=== PATIENT | female | born 1935 | race Caucasian/White ===

== ENCOUNTER 2021-03-25 12:59 | Inpatient (IN) | payer MEDICARE, BC ==
[~2021-03-25] VITALS: Ht 177.8 cm; Wt 78.0 kg
[~2021-03-25 12:59] MED LIST: AMLODIPINE BESY10 MG PO; ASPIRIN BUFFER325 MG PO; ASPIRIN300 MG; ASPIRIN325 MG PO; ASPIRIN500 MG PO; B12 5,000 MCG1 EACH PO; CARVEDILOL12.5 MG PO; CEPHALEXIN500 MG PO; CLONIDINE HCL0.1 MG PO; FLONASE16 GM; GABAPENTIN100 MG; LASIX; LEVAQUIN500 MG PO; LISINOPRIL10 MG PO; METOPROLOL TART50 MG PO; MICARDIS40 MG PO; POTASSIUM CHLO20 ME1 PO; PREDNISONE5 MG PO; TYLENOL WITH C1 EACH PO; VITAMIN B-121000 MCG PO
[2021-03-25 13:41] LABS: BASOPHILS % 0.5 % (0.0-1.0); EOSINOPHILS # (AUTO) 0.2 (0.0-0.4); HEMATOCRIT 26.5 % (34.2-44.1); HEMOGLOBIN 8.6 g/dL (12.0-16.0); LYMPHOCYTES # (AUTO) 1.2 (1.0-3.2); LYMPHOCYTES % 18.9 % (18.0-39.1); MEAN CORPUSCULAR HEMOGLOBIN 27.9 pg (28-32); MEAN CORPUSCULAR HGB CONC 32.5 g/dL (31-35); MONOCYTES # (AUTO) 0.5 (0.2-0.8); MONOCYTES % 7.1 % (4.4-11.3); NEUTROPHILS # (AUTO) 4.5 (2.1-6.9); NEUTROPHILS % 69.7 % (38.7-80.0); PLATELET COUNT 276 x10e3/uL (140-360); RED BLOOD COUNT 3.08 x10e6/uL (3.6-5.1); RED CELL DISTRIBUTION WIDTH 14.6 % (11.7-14.4)
[2021-03-25 13:49] LABS: INR 1.02; PROTHROMBIN TIME 13.6 seconds (11.9-14.5)
[2021-03-25 13:50] LABS: PARTIAL THROMBOPLASTIN TIME 32.6 seconds (23.8-35.5)
[2021-03-25 13:59] LABS: ALBUMIN 2.8 g/dL (3.5-5.0); ALBUMIN/GLOBULIN RATIO 0.9 (0.8-2.0); ANION GAP 15.9 mmol/L (8-16); CALCIUM 8.7 mg/dL (8.4-10.2); CREATININE, SERUM 0.67 mg/dL (0.57-1.11)
[2021-03-25 14:02] LABS: POTASSIUM 2.9 mmol/L (3.5-5.1)
[2021-03-25 14:05] LABS: CREATINE KINASE MB 1.1 ng/mL (0-5.0)
[2021-03-25] MEDS: CEFTRIAXONE 2 GM in SODIUM CHLORIDE 0.9% 100 ML IV SCH (14:23)
[2021-03-25] MEDS ORDERED: FUROSEMIDE40 MG (14:30)
[2021-03-25] MEDS ORDERED: REMDESIVIR 200MG 200 MG in SODIUM CHLORIDE 0.9% 100 ML IV ONE (14:30)
[2021-03-25] MEDS ORDERED: APLISOL5 TUB UNIT (14:30)
[2021-03-25] MEDS ORDERED: REMDESIVIR 100MG 200 MG in SODIUM CHLORIDE 0.9% 100 ML IV ONE (14:30)
[2021-03-25] MEDS ORDERED: DOXAZOSIN MESYLA2 MG (14:30)
[2021-03-25] MEDS ORDERED: AMLODIPINE BESYL5 MG (14:30)
[2021-03-25] MEDS ORDERED: LISINOPRIL20 MG (14:30)
[2021-03-25] MEDS ORDERED: SIMETHICONE80 MG (14:30)
[2021-03-25] MEDS ORDERED: DIPHENHYDRAMINE HCL 25 MG CAP PO PRN (14:30)
[2021-03-25] MEDS ORDERED: METOPROLOL SUCC50 MG (14:30)
[2021-03-25] MEDS ORDERED: POTASSIUM CHLORIDE 20 MEQ TAB CR PO PRN (14:30)
[2021-03-25] MEDS ORDERED: DIVALPROEX SOD125 MG (14:30)
[2021-03-25] MEDS ORDERED: TRAMADOL HCL 50 MG TAB PO PRN (14:30)
[2021-03-25] MEDS ORDERED: MELATONIN 5 MG TABLET PO PRN (14:30)
[2021-03-25] MEDS ORDERED: DOCUSATE SODIUM 100 MG CAP PO PRN (14:30)
[2021-03-25] MEDS ORDERED: CHLORASEPTIC SPRAY 177 ML BTL MM PRN (14:30)
[2021-03-25] MEDS ORDERED: SIMETHICONE 80 MG CHEW PO PRN (14:30)
[2021-03-25] MEDS ORDERED: DEXTROSE 50% SYRINGE 50 ML IV PRN (14:30)
[2021-03-25] MEDS ORDERED: ONDANSETRON HCL INJ 2MG/ML 2ML 2 MG/ML VIAL IV PRN (14:30)
[2021-03-25] MEDS ORDERED: FAMOTIDINE20 MG (14:30)
[2021-03-25] MEDS ORDERED: HYDRALAZINE HCL 20 MG/ML VIAL IV PRN (14:30)
[2021-03-25] MEDS ORDERED: GUAIFENESIN/CODEINE 10 ML CUP PO PRN (14:30)
[2021-03-25] MEDS ORDERED: ATORVASTATIN CA10 MG (14:30)
[2021-03-25 14:33] LABS: CLARITY,URINE HAZY (CLEAR); COLOR,URINE YELLOW (YELLOW); KETONES,URINE NEGATIVE (NEGATIVE); LEUKOCYTE ESTERASE ,URINE TRACE (NEGATIVE); NITRITE,URINE NEGATIVE (NEGATIVE); PROTEIN,URINE DIPSTICK NEGATIVE (NEGATIVE); URINE UROBILINOGEN 0.2 mg/dL (0.2 - 1)
[2021-03-25 14:34] LABS: BACTERIA,URINE FEW /HPF
[2021-03-25 14:35] LABS: EPITHELIAL CELLS,URINE MODERATE /LPF
[2021-03-25] MEDS ORDERED: SODIUM CHLORIDE 0.9% 1000ML 1,000 ML IV SCH (14:45)
[2021-03-25] MEDS: DEXAMETHASONE SOD PHOS 10 MG/1 ML VIAL IV SCH (15:48)
[2021-03-25 17:30] VITALS: BP 162/55
[2021-03-25] MEDS: ENOXAPARIN SOD INJ 40 MG/0.4 ML SYR SC SCH (17:30)
[2021-03-25] MEDS: ASCORBIC ACID 500 MG TAB PO SCH (17:30)
[2021-03-25 17:33] VITALS: BP 162/55
[2021-03-25] MEDS ORDERED: POTASSIUM CHLORIDE 20 MEQ TAB CR PO STA (17:58)
[2021-03-25 19:15] LABS: CREATINE KINASE MB 1.2 ng/mL (0-5.0)
[2021-03-25 20:00] VITALS: BP 172/51
[2021-03-25 21:42] VITALS: BP 172/51
[2021-03-26] VITALS (7 sets, daily range): BP systolic 148–182; BP diastolic 49–114
[2021-03-26 07:14] LABS: ALBUMIN 2.6 g/dL (3.5-5.0); ALBUMIN/GLOBULIN RATIO 0.8 (0.8-2.0); ANION GAP 17.3 mmol/L (8-16); CALCIUM 8.7 mg/dL (8.4-10.2); CREATININE, SERUM 0.67 mg/dL (0.57-1.11); HEMOGLOBIN 7.5 g/dL (12.0-16.0); LYMPHOCYTES # (AUTO) 0.5 (1.0-3.2); LYMPHOCYTES % 17.6 % (18.0-39.1); MEAN CORPUSCULAR HEMOGLOBIN 28.6 pg (28-32); MEAN CORPUSCULAR HGB CONC 33.5 g/dL (31-35); MEAN CORPUSCULAR VOLUME 85.5 fL (81-99); MONOCYTES # (AUTO) 0.1 (0.2-0.8); MONOCYTES % 3.4 % (4.4-11.3); NEUTROPHILS # (AUTO) 2.3 (2.1-6.9); NEUTROPHILS % 77.6 % (38.7-80.0); PLATELET COUNT 257 x10e3/uL (140-360); POTASSIUM 3.3 mmol/L (3.5-5.1); RED BLOOD COUNT 2.62 x10e6/uL (3.6-5.1); RED CELL DISTRIBUTION WIDTH 14.6 % (11.7-14.4)
[2021-03-26 07:28] LABS: HEMATOCRIT 22.4 % (34.2-44.1)
[2021-03-26 07:38] LABS: CREATINE KINASE MB 1.1 ng/mL (0-5.0)
[2021-03-26] MEDS ORDERED: GUAIFENESIN/CODEINE 5 ML LIQD PO PRN (07:45)
[2021-03-26] MEDS: ASCORBIC ACID 500 MG TAB PO SCH ×2 (07:52→17:36)
[2021-03-26] MEDS: DEXAMETHASONE SOD PHOS 10 MG/1 ML VIAL IV SCH (07:52)
[2021-03-26] MEDS: PANTOPRAZOLE SOD 40 MG TABEC PO SCH (07:52)
[2021-03-26] MEDS: ZINC SULFATE 50 MG CAP PO SCH (07:53)
[2021-03-26 08:20] LABS: LYMPHOCYTES % (MANUAL) 13 % (19-48); MONOCYTES % (MANUAL) 5 % (3.4-9.0); NEUTROPHILS % (MANUAL) 82 % (40-74)
[2021-03-26 08:21] LABS: PLATELET ESTIMATE ADEQUATE; PLATELET MORPHOLOGY COMMENT NORMAL; RBC MORPHOLOGY COMMENT NORMAL
[2021-03-26] MEDS ORDERED: LIDOCAINE 4% PATCH TP PRN (09:00)
[2021-03-26] MEDS: ACETAMINOPHEN 325 MG TAB PO PRN (11:00)
[2021-03-26] MEDS: REMDESIVIR 100MG 100 MG in SODIUM CHLORIDE 0.9% 100 ML IV SCH (14:00)
[2021-03-26] MEDS: CEFTRIAXONE 2 GM in SODIUM CHLORIDE 0.9% 100 ML IV SCH (15:00)
[2021-03-26] MEDS: ENOXAPARIN SOD INJ 40 MG/0.4 ML SYR SC SCH (17:36)
[2021-03-27] VITALS (7 sets, daily range): BP systolic 127–166; BP diastolic 35–107
[2021-03-27] MEDS: FUROSEMIDE INJ 10 MG/ML 4 ML VIAL IV SCH ×4 (00:28→22:47)
[2021-03-27 08:26] LABS: BASOPHILS % 0.1 % (0.0-1.0); HEMATOCRIT 23.4 % (34.2-44.1); HEMOGLOBIN 7.7 g/dL (12.0-16.0); LYMPHOCYTES # (AUTO) 0.7 (1.0-3.2); LYMPHOCYTES % 7.7 % (18.0-39.1); MEAN CORPUSCULAR HEMOGLOBIN 28.4 pg (28-32); MEAN CORPUSCULAR HGB CONC 32.9 g/dL (31-35); MEAN CORPUSCULAR VOLUME 86.3 fL (81-99); MONOCYTES # (AUTO) 0.3 (0.2-0.8); MONOCYTES % 3.7 % (4.4-11.3); NEUTROPHILS # (AUTO) 7.8 (2.1-6.9); NEUTROPHILS % 86.7 % (38.7-80.0); PLATELET COUNT 311 x10e3/uL (140-360); RED BLOOD COUNT 2.71 x10e6/uL (3.6-5.1); RED CELL DISTRIBUTION WIDTH 14.6 % (11.7-14.4)
[2021-03-27] MEDS: DEXAMETHASONE SOD PHOS 10 MG/1 ML VIAL IV SCH (08:27)
[2021-03-27] MEDS: PANTOPRAZOLE SOD 40 MG TABEC PO SCH (08:27)
[2021-03-27] MEDS: POTASSIUM CHLORIDE 20 MEQ TAB CR PO SCH ×2 (08:28→17:15)
[2021-03-27] MEDS: LOSARTAN POTASSIUM 100 MG TAB PO SCH (08:28)
[2021-03-27] MEDS: ASCORBIC ACID 500 MG TAB PO SCH ×2 (08:28→17:15)
[2021-03-27] MEDS: DOXAZOSIN MESYLATE 2 MG TAB PO SCH ×2 (08:28)
[2021-03-27] MEDS: DIVALPROEX SODIUM 125 MG TABDR...ER PO SCH (08:28)
[2021-03-27] MEDS: ZINC SULFATE 50 MG CAP PO SCH (08:28)
[2021-03-27] MEDS: BALSAM PERU/CASTOR OIL 60 GM OINT...G. TP SCH (08:28)
[2021-03-27 08:53] LABS: ANION GAP 16.4 mmol/L (8-16); CALCIUM 8.9 mg/dL (8.4-10.2); CREATININE, SERUM 0.68 mg/dL (0.57-1.11); POTASSIUM 3.4 mmol/L (3.5-5.1)
[2021-03-27] MEDS: REMDESIVIR 100MG 100 MG in SODIUM CHLORIDE 0.9% 100 ML IV SCH (14:00)
[2021-03-27] MEDS: CEFTRIAXONE 2 GM in SODIUM CHLORIDE 0.9% 100 ML IV SCH (14:43)
[2021-03-27] MEDS: ENOXAPARIN SOD INJ 40 MG/0.4 ML SYR SC SCH (17:15)
[2021-03-27] MEDS: DEXAMETHASONE 4 MG TAB PO SCH (17:15)
[2021-03-27] MEDS: BUMETANIDE 1 MG TAB PO SCH (17:15)
[2021-03-28 03:00] VITALS: BP 171/53
[2021-03-28 06:24] LABS: HEMOGLOBIN 7.3 g/dL (12.0-16.0); LYMPHOCYTES # (AUTO) 0.6 (1.0-3.2); LYMPHOCYTES % 6.5 % (18.0-39.1); MEAN CORPUSCULAR HEMOGLOBIN 29.1 pg (28-32); MEAN CORPUSCULAR HGB CONC 32.4 g/dL (31-35); MEAN CORPUSCULAR VOLUME 89.6 fL (81-99); MONOCYTES # (AUTO) 0.3 (0.2-0.8); MONOCYTES % 2.9 % (4.4-11.3); NEUTROPHILS % 88.4 % (38.7-80.0); PLATELET COUNT 274 x10e3/uL (140-360); RED BLOOD COUNT 2.51 x10e6/uL (3.6-5.1); RED CELL DISTRIBUTION WIDTH 14.8 % (11.7-14.4)
[2021-03-28 06:33] LABS: HEMATOCRIT 22.5 % (34.2-44.1)
[2021-03-28 06:43] LABS: ANION GAP 15.1 mmol/L (8-16); CALCIUM 8.6 mg/dL (8.4-10.2); CREATININE, SERUM 0.79 mg/dL (0.57-1.11); POTASSIUM 4.1 mmol/L (3.5-5.1)
[2021-03-28] MEDS: FUROSEMIDE INJ 10 MG/ML 4 ML VIAL IV SCH ×2 (08:00→16:00)
[2021-03-28 08:20] VITALS: BP 187/57
[2021-03-28] MEDS: DEXAMETHASONE SOD PHOS 10 MG/1 ML VIAL IV SCH (08:56)
[2021-03-28] MEDS: DOXAZOSIN MESYLATE 2 MG TAB PO SCH (09:01)
[2021-03-28] MEDS: BUMETANIDE 1 MG TAB PO SCH (09:02)
[2021-03-28] MEDS: POTASSIUM CHLORIDE 20 MEQ TAB CR PO SCH (09:02)
[2021-03-28] MEDS: PANTOPRAZOLE SOD 40 MG TABEC PO SCH (09:02)
[2021-03-28] MEDS: ZINC SULFATE 50 MG CAP PO SCH (09:02)
[2021-03-28] MEDS: ASCORBIC ACID 500 MG TAB PO SCH ×2 (09:02→19:00)
[2021-03-28] MEDS: DIVALPROEX SODIUM 125 MG TABDR...ER PO SCH (09:02)
[2021-03-28] MEDS: LOSARTAN POTASSIUM 100 MG TAB PO SCH (09:03)
[2021-03-28] MEDS: DEXAMETHASONE 4 MG TAB PO SCH (09:05)
[2021-03-28 11:30] VITALS: BP 187/57
[2021-03-28] MEDS: REMDESIVIR 100MG 100 MG in SODIUM CHLORIDE 0.9% 100 ML IV SCH (14:00)
[2021-03-28 14:14] VITALS: BP 163/70
[2021-03-28] MEDS: CEFTRIAXONE 2 GM in SODIUM CHLORIDE 0.9% 100 ML IV SCH (15:00)
[2021-03-28] MEDS: BALSAM PERU/CASTOR OIL 60 GM OINT...G. TP SCH (16:02)
[2021-03-28] MEDS ORDERED: ONDANSETRON HCL 4 MG ORAL DISINTEGRATING TAB PO PRN (16:15)
[2021-03-28] MEDS ORDERED: AZITHROMYCIN 250 MG TAB PO SCH (16:15)
[2021-03-28] MEDS: ENOXAPARIN SOD INJ 40 MG/0.4 ML SYR SC SCH (19:00)
[2021-03-28 20:00] VITALS: BP 171/66
[2021-03-28] MEDS: ACETAMINOPHEN 325 MG TAB PO PRN (20:48)
[2021-03-28 21:42] VITALS: BP 171/66
[2021-03-29 00:30] VITALS: BP 188/62
[2021-03-29] MEDS ORDERED: HYDRALAZINE HCL 25 MG TAB PO ONE (01:00)
[2021-03-29 04:00] VITALS: BP 152/52
[2021-03-29] MEDS: DEXAMETHASONE SOD PHOS 10 MG/1 ML VIAL IV SCH (07:58)
[2021-03-29 08:00] VITALS: BP 166/55
[2021-03-29] MEDS: PANTOPRAZOLE SOD 40 MG TABEC PO SCH (08:43)
[2021-03-29] MEDS ORDERED: AZITHROMYCIN 250 MG TAB PO SCH (09:00)
[2021-03-29] MEDS ORDERED: HYDRALAZINE HCL 25 MG TAB PO SCH (09:00)
[2021-03-29] MEDS: BALSAM PERU/CASTOR OIL 60 GM OINT...G. TP SCH (09:00)
[2021-03-29 10:14] VITALS: BP 166/55
[2021-03-29] MEDS: DOXAZOSIN MESYLATE 2 MG TAB PO SCH (10:42)
[2021-03-29] MEDS: DIVALPROEX SODIUM 125 MG TABDR...ER PO SCH (10:42)
[2021-03-29] MEDS: ASCORBIC ACID 500 MG TAB PO SCH (10:42)
[2021-03-29] MEDS: ZINC SULFATE 50 MG CAP PO SCH (10:42)
[2021-03-29] MEDS: DEXAMETHASONE 4 MG TAB PO SCH (10:43)
[2021-03-29] MEDS: LOSARTAN POTASSIUM 100 MG TAB PO SCH (10:43)
[2021-03-29] MEDS: BUMETANIDE 1 MG TAB PO SCH (10:43)
[2021-03-29] MEDS ORDERED: FLUCONAZOLE 100 MG TAB PO SCH (12:00)
[2021-03-29 12:06] VITALS: BP 144/54
== END 2021-03-29 12:38 | DRG 177 ==
LOC: ER 13:47 → ERHOLD 13:50 → IMCU 16:39
PROVIDERS: ADMIT Internal Medicine; ATTEND Internal Medicine
PROC: XW033E5 Introduction of Remdesivir Anti-infective into Peripheral Vein, Percutaneous Approach, New Technology Group 5 (ICD-10-PCS; principal; 2021-03-25)
PROC: 8E0ZXY6 Isolation (ICD-10-PCS; 2021-03-25)
DX: U07.1 COVID-19 (principal); J12.82 Pneumonia due to coronavirus disease 2019; J80 Acute respiratory distress syndrome; G93.41 Metabolic encephalopathy; J90 Pleural effusion, not elsewhere classified; G30.9 Alzheimer's disease, unspecified; F02.80 Dementia in other diseases classified elsewhere, unspecified severity, without behavioral disturbance, psychotic disturbance, mood disturbance, and anxiety; E78.5 Hyperlipidemia, unspecified; I73.9 Peripheral vascular disease, unspecified; Z85.3 Personal history of malignant neoplasm of breast; Z66 Do not resuscitate; E87.6 Hypokalemia; Z53.20 Procedure and treatment not carried out because of patient's decision for unspecified reasons; I10 Essential (primary) hypertension
CPT/HCPCS: 36415; 51700; 71045; 80048; 80053; 81001; 82550; 82553; 82728; 83036; 83735; 84484; 85025; 85610; 85651; 85730; 87040; 93005; 97139; 99251; 99285; J0456; J0696; J1100; J1650; J7050; U0002